=== PATIENT | female | born 1995 | race African-American/Black ===

== ENCOUNTER 2017-11-12 02:15 | Inpatient (IN) | payer BC ==
[~2017-11-12 02:15] MED LIST: ELECTROLYTE-148 SOLN 500 ML IV ONE
[2017-11-12] MEDS ORDERED: ELECTROLYTE-148 SOLN 500 ML IV ONE (03:15)
[2017-11-12] MEDS ORDERED: AMPICILLIN - 2 GM in SODIUM CHLORIDE 100 ML IVPB ONE (03:45)
[2017-11-12 03:49] LABS: BASO % 0.2 % (0-2.0); EOS % 0.2 % (0-4.5); HEMATOCRIT 32.7 % (32.4-45.2); HEMOGLOBIN 10.6 GM/dL (10.7-15.3); LYMPH % 36.1 % (8-40); MCH 23.6 pg (25.7-33.7); MCHC 32.3 g/dl (32.0-36.0); MEAN CELL VOLUME 72.9 fl (80-96); MEAN PLT VOLUME 9.6 fl (7.5-11.1); MONO % 10.5 % (3.8-10.2); PLATELET COUNT 226 K/MM3 (134-434); RBC 4.48 M/mm3 (3.60-5.2); RDW 19.3 % (11.6-15.6)
[2017-11-12] MEDS ORDERED: AMPICILLIN SODIUM 2 GM VIAL ONE (03:59)
[2017-11-12 04:03] LABS: INR 0.96 (0.82-1.09); PROTHROMBIN TIME (PATIENT) 10.8 SEC (9.98-11.88)
[2017-11-12 04:06] LABS: ACTIVATED PTT 25.3 SECONDS (26.9-34.4)
[2017-11-12 04:12] LABS: ANION GAP 10 (8-16); BLOOD UREA NITROGEN 8 mg/dL (7-18); CALCIUM 8.6 mg/dL (8.5-10.1); CHLORIDE 107 mmol/L (98-107); CO2 24 mmol/L (21-32); CREATININE 0.6 mg/dL (0.55-1.02); GLUCOSE,RANDOM 79 mg/dL (74-106); POTASSIUM 3.8 mmol/L (3.5-5.1); SODIUM 141 mmol/L (136-145)
[2017-11-12] MEDS ORDERED: ELECTROLYTE-148 SOLN 1,000 ML IV SCH ×3 (05:15→08:45)
[2017-11-12 05:37] VITALS: BMI 45.3
[2017-11-12] MEDS ORDERED: FENTANYL/BUPIVACAINE/NS/PF - PCEA - 50 ML DISP.SYRIN EP ONE ×2 (07:16→12:18)
--- NOTE | 2017-11-12 07:51 | HP ---
Past Medical History - Admission Chief Complaint: SROM History of Present Illness: 22 y/o with SIUP at 39.2 weeks gestation here for leakage of fluid. Admitted overnight with gross ROM. Pt began having contractions overnight and recently requested an epidural for pain control. Started on GBS Prophylaxis overnight per protocol (GBS unknown). complicated by morbid obesity and +Chlamydia which was treated. No other complications. History Source: Patient, Medical Record - Past Medical History Cardiovascular: No: HTN, MD Pulmonary: No: Asthma, COPD Gastrointestinal: No: GERD ...: 1 ...Para: 0 ...LMP: 03/02/17 ... Weeks Gestation by Dates: 37.3 ...EDC by Dates: 11/30/17 ...EDC by Sono: 08/19/17 Heme/Onc: No: Anemia Infectious Disease: Yes: STD's (+Chlamydia this - treated). No: HIV Psych: No: Anxiety, Bipolar, Depression Endocrine: No: Diabetes Mellitus - Past Surgical History Past Surgical History: Yes: None Hx Myomectomy: No Hx Transabdominal Cerclage: No - Smoking History Smoking history: Former smoker Have you smoked in the past 12 months: No Aproximately how many cigarettes per day: 0 - Alcohol/Substance Use Hx Alcohol Use: No History of Substance Use: reports: Marijuana (quit MJ use) - Social History History of Recent Travel: No Home Medications - Allergies Allergies/Adverse Reactions: Allergies Allergy/AdvReac Type Severity Reaction Status Date / Time bee venom protein (honey bee) Allergy Verified 11/12/17 06:56 No Known Drug Allergies Allergy Verified 11/12/17 06:56 BEE STINGS Allergy Uncoded 11/12/17 06:56 - Home Medications Home Medications: Ambulatory Orders Vit Calc,Iron,Folic [ Vitamins] 1 each PO DAILY 11/12/17 Review of Systems - Review of Systems Constitutional: reports: No Symptoms Eyes: reports: No Symptoms HENT: reports: No Symptoms Neck: reports: No Symptoms Cardiovascular: reports: No Symptoms Respiratory: reports: No Symptoms Genitourinary: reports: Discharge (leaking fluid). denies: Vaginal Bleeding Musculoskeletal: reports: No Symptoms Integumentary: reports: No Symptoms Neurological: reports: No Symptoms Hematology/Lymphatic: reports: No Symptoms Psychiatric: reports: No Symptoms Physical Exam - Maternity Vital Signs: Vital Signs Temperature 98.7 F 11/12/17 06:00 Pulse Rate 83 11/12/17 06:00 Respiratory Rate 20 11/12/17 06:00 Blood Pressure 135/80 11/12/17 06:00 O2 Sat by Pulse Oximetry (%) Constitutional: Yes: Well Nourished, No Distress, Calm Eyes: Yes: Conjunctiva Clear, EOM Intact HENT: Yes: Atraumatic, Normocephalic Neck: Yes: Supple, Trachea Midline Cardiovascular: Yes: Regular Rate and Rhythm Lungs: Clear to auscultation - Abdominal Exam/OB Number of Fetuses: Single Presentation: Vertex Contractions: Yes Regularity: Regular Intensity: Moderate Heart Rate (range): 150 Category: I Accelerations: Uniform Decelerations: None (was having non recurrent variable decelerations prior - now tracing category 1) - Vaginal Exam/OB Speculum Exam: No Dilatation (cm): 5 Effacement (%): 80 Amniotic Membrane Status: Ruptured Amniotic Fluid: Yes: Clear Station: -2 - Physical Exam Psychiatric: Yes: Alert, Oriented - Labs Lab Results: CBC, BMP 11/12/17 03:35 11/12/17 03:35 Hemorrhage Risk Assessment - Risk Factors Medium Risk Factors: Yes: Obesity (BMI >40) High Risk Factors: Yes: None Risk Score: 1 Risk Level: Medium Risk Problem List - Problems (1) Spontaneous rupture of amniotic membranes Code(s): KCE3111 - (2) Rupture of membranes with clear amniotic fluid Code(s): O42.019 - PRETRM RAFAEL ROM, ONSET LABOR W/N 24 HOURS OF RUPT, UNSP TRI (3) Obesity affecting Code(s): O99.210 - OBESITY COMPLICATING , UNSPECIFIED TRIMESTER (4) Active labor at term Code(s): AVG8976 - Assessment/Plan 22 y/o with SIUP at 39.2 weeks, SROM, early labor - FHTS cat 1 - periods of category 2 overnight but have resolved - early labor, s/p epidural, for expectant management at this time - GBS positive per records, continue ampicillin per protocol
[2017-11-12] MEDS: AMPICILLIN - 1 GM in SODIUM CHLORIDE 100 ML IVPB SCH ×4 (08:45→22:51)
[2017-11-12] MEDS ORDERED: NALOXONE HCL 0.4 MG/ML VIAL IVPUSH PRN (08:57)
[2017-11-12] MEDS ORDERED: FENTANYL/BUPIVACAINE/NS/PF - PCEA - 50 ML DISP.SYRIN EP SCH (09:00)
--- NOTE | 2017-11-12 13:33 | PN ---
Ante-Partal Exam - Subjective Subjective: PT feeling some contractions. Continues to have recurrent variable and early declerations, occasional late decelerations noted. Vital Signs: Vital Signs Temperature 98.4 F 11/12/17 10:00 Pulse Rate 71 11/12/17 12:30 Respiratory Rate 18 11/12/17 12:30 Blood Pressure 132/81 11/12/17 12:30 O2 Sat by Pulse Oximetry (%) 98 11/12/17 12:30 Bleeding: Yes Bleeding Description: Moderate (consistent with bloody show) Headache: No Visual changes: No Right upper quadrant pain: No Pain (scale 1-10): 6 - Contractions Contractions: Yes Regularity: Regular Intensity: Mod/Strong - Exam during Labor Heart Rate: 140 Variability: Moderate Category: II Monitor Accelerations: Present Monitor Decelerations: Variable (and early decelerations) Exam: Vaginal Dilatation (cm): 7 Effacement (%): 100 Amniotic Membrane Status: Ruptured Amniotic Fluid: Clear Presentation: Vertex Station: -1 - Assessment/Plan Assessment/Plan: amnio infusion started for recurrent variable/early decelerations pt making slow cervical change if no improvement in tracing or if no spontaneous cervical dilation may need to proceed with delivery will reevaluate in 1-2 hours GBS positive, continue ampicillin
[2017-11-12] MEDS ORDERED: BUPIVACAINE HCL/PF 0.25% (2.5MG/ML) 10 ML VIAL ONE (13:46)
[2017-11-12] MEDS ORDERED: AMPICILLIN SODIUM 1 GM VIAL ONE (15:15)
[2017-11-12] MEDS ORDERED: OXYTOCIN 20 UNITS in 0.9% NS 20 UNIT/1,000 ML INFUS.BAG IV ONE ×2 (16:15→18:40)
[2017-11-12] MEDS ORDERED: LIDOCAINE HCL 1% PRESERVATIVE FREE - 30ML VIAL ONE (16:15)
[2017-11-12] MEDS: OXYTOCIN 20 UNITS in 0.9% NS 20 UNIT/1,000 ML INFUS.BAG IV SCH ×2 (16:40→18:35)
[2017-11-12] MEDS ORDERED: BISACODYL 10 MG SUPP.RECT RC PRN (16:52)
[2017-11-12] MEDS ORDERED: WITCH HAZEL 50% (TUCKS) 40 PAD/JAR PAD TP PRN (16:52)
[2017-11-12] MEDS ORDERED: IBUPROFEN 600 MG TABLET (FP) PO PRN (16:52)
[2017-11-12] MEDS ORDERED: BENZOCAINE 20% 57 GM BOTTLE TP PRN (16:52)
[2017-11-12] MEDS ORDERED: METHYLERGONOVINE MALEATE 0.2 MG/1 ML AMP IM PRN (16:52)
[2017-11-12] MEDS ORDERED: BENZOCAINE 28 GM HEMORRHOIDAL OINTMENT TP PRN (16:52)
--- NOTE | 2017-11-12 16:58 | PN ---
Delivery - Delivery Vaginal Delivery: No Problems Type of Anesthesia: Epidural Episiotomy/Laceration: 1st degree EBL (cc): 300 Delivery, Single - Stages of Labor Date of Delivery: 11/12/17 Time of Delivery: 16:36 Time Placenta Delivered: 16:40 Placenta: Yes: Spontaneous - Condition of Glove Tagger/Air Conditioning Installer Supervisor Present: Yes Name: Jocelyne Mccann Gender: Male Position: Right, OA - 1 Minute Total Score: 8 5 Minutes Total Score: 9 - Feeding Plan Initial Plan: Exclusive throughout hospitalization Remarks - Remarks Remarks: normal uncomplicated baby delivered from JAMARCUS position, nuchal cord noted which was reduced after delivery of head anterior shoulder (left) delivered with ease along with remainder of cord clamped and cut cord gasses collected placenta delivered spontaneously and in tact 1st degree lac noted repaired with 3-0 vicryl and 2-0 chromic suture baby doing well mom stable sponge and needle count correct after delivery
[2017-11-12] MEDS: ACETAMINOPHEN 325 MG TABLET (FP) PO PRN (17:00)
[2017-11-12 17:28] LABS: ARTERIAL BLOOD GAS PCO2 52.5 mmHg (35-45); ARTERIAL BLOOD GAS pH 7.28 (7.35-7.45)
[2017-11-12 17:29] LABS: ARTERIAL BLOOD GAS BASE EXCESS -3.3 meq/l (-2-2)
[2017-11-12 17:32] LABS: ARTERIAL BLD GAS O2 SATURATION 49.2 % (90-98.9); ARTERIAL BLOOD GAS PO2 24.8 mmHg (80-100)
[2017-11-12 17:33] LABS: VENOUS PH 7.28 (7.32-7.42)
[2017-11-12 17:34] LABS: VENOUS PC02 49.4 mmHg (38-52); VENOUS PO2 26.8 mmHg (28-48)
--- NOTE | 2017-11-13 07:34 | PN ---
Post Progress Note Post Day: 1 Type of Delivery: Vital Signs: Vital Signs Temperature 98.0 F 11/13/17 05:00 Pulse Rate 95 H 11/13/17 05:00 Respiratory Rate 20 11/13/17 05:00 Blood Pressure 132/83 11/13/17 05:00 O2 Sat by Pulse Oximetry (%) 100 11/12/17 16:15 Breast Exam: Yes: Soft Uterus: Yes: Fundus Firm, Non-tender Abdomen/GI: Yes: Abdomen soft, Passing flatus, Tolerating PO Lochia: Yes: Rubra Lochia, amount: Moderate Extremities: Yes: Calves non-tender Perineum: Yes: Laceration Activity: Ambulating - Labs Labs: CBC WBC 8.0 K/mm3 (4.0-10.0) 11/12/17 03:35 RBC 4.48 M/mm3 (3.60-5.2) 11/12/17 03:35 Hgb 10.6 GM/dL (10.7-15.3) L 11/12/17 03:35 Hct 32.7 % (32.4-45.2) 11/12/17 03:35 MCV 72.9 fl (80-96) L 11/12/17 03:35 MCH 23.6 pg (25.7-33.7) L 11/12/17 03:35 MCHC 32.3 g/dl (32.0-36.0) 11/12/17 03:35 RDW 19.3 % (11.6-15.6) H 11/12/17 03:35 Plt Count 226 K/MM3 (134-434) 11/12/17 03:35 MPV 9.6 fl (7.5-11.1) 11/12/17 03:35 Neutrophils % 53.0 % (42.8-82.8) 11/12/17 03:35 Lymphocytes % 36.1 % (8-40) 11/12/17 03:35 Monocytes % 10.5 % (3.8-10.2) H 11/12/17 03:35 Eosinophils % 0.2 % (0-4.5) 11/12/17 03:35 Basophils % 0.2 % (0-2.0) 11/12/17 03:35 Other Findings, Remarks: patient offers no complaints, she is lactating well plan to continue current care
[2017-11-13 08:26] LABS: BASO % 0.2 % (0-2.0); EOS % 0.2 % (0-4.5); HEMATOCRIT 26.3 % (32.4-45.2); HEMOGLOBIN 8.2 GM/dL (10.7-15.3); LYMPH % 27.2 % (8-40); MCH 23.1 pg (25.7-33.7); MCHC 31.3 g/dl (32.0-36.0); MEAN CELL VOLUME 73.8 fl (80-96); MEAN PLT VOLUME 9.4 fl (7.5-11.1); MONO % 11.3 % (3.8-10.2); NEUT % 61.1 % (42.8-82.8); PLATELET COUNT 178 K/MM3 (134-434); RBC 3.57 M/mm3 (3.60-5.2); RDW 19.8 % (11.6-15.6); WHITE BLOOD COUNT 11.2 K/mm3 (4.0-10.0)
[2017-11-13] MEDS: PRENATAL VITAMINS W/ FOLIC ACID TABLET (FP) PO SCH (09:19)
--- NOTE | 2017-11-13 20:28 | DS ---
Physical Exam-DROP FORGE HAND Vital Signs: Vital Signs Temperature 98.6 F 11/13/17 14:00 Pulse Rate 99 H 11/13/17 14:00 Respiratory Rate 20 11/13/17 14:00 Blood Pressure 143/73 11/13/17 14:00 O2 Sat by Pulse Oximetry (%) 100 11/12/17 16:15 Constitutional: Yes: Well Nourished, No Distress, Calm Eyes: Yes: Conjunctiva Clear, EOM Intact HENT: Yes: Atraumatic, Normocephalic Neck: Yes: Supple, Trachea Midline Cardiovascular: Yes: Regular Rate and Rhythm Respiratory: Yes: Regular, CTA Bilaterally Gastrointestinal: Yes: Normal Bowel Sounds, Soft Neurological: Yes: Alert, Oriented Psychiatric: Yes: Alert, Oriented Labs: CBC, BMP 11/13/17 07:45 11/12/17 03:35 Delivery - Delivery Vaginal Delivery: No Problems Type of Anesthesia: Epidural Episiotomy/Laceration: 1st degree EBL (cc): 300 Delivery, Single - Stages of Labor Date 1st Stage Initiatied: 11/12/17 Time 1st Stage Initiated: 01:40 Date 2nd Stage Initiated: 11/12/17 Time 2nd Stage Initiated: 16:10 Date of Delivery: 11/12/17 Time of Delivery: 16:36 Time Placenta Delivered: 16:40 Placenta: Yes: Spontaneous - Condition of Relationship Management Lead/Education Dean Present: Yes Name: Jocelyne Mccann Infant Gender: Male Weight: 8 lb 1 oz Position: Right, OA Total Hours ROM (Hrs/Mins): 15HRS - 1 Minute Total Score: 8 5 Minutes Total Score: 9 - [place] Feeding Plan Initial Plan: Exclusive throughout hospitalization Discharge Summary Reason For Visit: LABOR ADMIT Current Active Problems Active labor at term (Acute) Obesity affecting (Acute) Rupture of membranes with clear amniotic fluid (Acute) Spontaneous rupture of amniotic membranes (Acute) Procedures: Principal: Normal Hospital Course: Patient admitted on 11/12 with complaints of leaking fluid, diagnosed with rupture of amniotic membranes and labor. Pt had uncomplicated labor and delivery of viable baby boy. Pt had unremarkable post course and was discharged home on post day 2. Condition: Good - Instructions Diet, Activity, Other Instructions: Physical activity Resume your normal everyday activity as tolerated no heavy lifting or strenuous exercise until seen by your doctor. You may walk unlimited amounts and climb stairs. You may resume driving the car when you feel safe and comfortable behind the wheel. No sexual activity as instructed. Wound care If you have stitches, they will dissolve on their own. Do not attempt to remove them. Diet There are no dietary restrictions. Eat healthy, high-fiber foods. Drink 6 to 8 glasses of liquid each day. This will assist in keeping your bowels are regular. Pain management You may take Tylenol or Ibuprofen (for example, Motrin, Advil etc.) as needed for pain. Call MD for any of the following: Severe pain not relieved by medication Fever of 101 or higher Excessive bleeding or drainage on dressing Inability to urinate Referrals: Anaid Fournier DO [Staff Physician] - 1 Month (4-6 weeks) Disposition: HOME - Home Medications Comprehensive Discharge Medication List: Ambulatory Orders Vit Calc,Iron,Folic [ Vitamins] 1 each PO DAILY 11/12/17
[2017-11-13] MEDS ORDERED: SENNOSIDES/DOCUSATE COMBO (SENNA PLUS) TABLET (UD) PO PRN (22:00)
[2017-11-13] MEDS: ACETAMINOPHEN 325 MG TABLET (FP) PO PRN (22:30)
[2017-11-14] VITALS: TEMP 98.5
[2017-11-14] MEDS: PRENATAL VITAMINS W/ FOLIC ACID TABLET (FP) PO SCH (09:28)
[2017-11-14 09:43] VITALS: BP 125/77; PULSE 83
== END 2017-11-14 12:20 | disposition home or self-care (01) | DRG 775 ==
LOC: JLDR 02:15 → J3W 19:50
PROVIDERS: ADMIT Obstetrics & Gynecology; ATTEND Obstetrics & Gynecology
PROC: 10E0XZZ Delivery of Products of Conception, External Approach (ICD-10-PCS; principal; 2017-11-12)
PROC: 0HQ9XZZ Repair Perineum Skin, External Approach (ICD-10-PCS; 2017-11-12)
PROC: 0W8NXZZ Division of Female Perineum, External Approach (ICD-10-PCS; 2017-11-12)
DX: O70.0 First degree perineal laceration during delivery (principal); Z68.42 Body mass index [BMI] 45.0-49.9, adult; Z37.0 Single live birth; O99.214 Obesity complicating childbirth; E66.9 Obesity, unspecified; Z3A.39 39 weeks gestation of pregnancy; Z22.330 Carrier of Group B streptococcus
CPT/HCPCS: 36415; 36600; 59409; 80048; 82803; 85025; 85610; 85730; 86593; 86850; 86900; 86901

== ENCOUNTER 2022-07-14 13:35 | Inpatient (IN) | payer OTHER ==
[2022-07-14] MEDS ORDERED: ELECTROLYTE-148 SOLN 1,000 ML IV SCH (14:00)
[2022-07-14 14:24] VITALS: BMI 51.6
[2022-07-14] MEDS ORDERED: BUTORPHANOL TARTRATE 2 MG/ML VIAL IVPB ONE (14:30)
[2022-07-14] MEDS ORDERED: PROMETHAZINE HCL 25 MG/1 ML VIAL IVPB ONE (14:30)
[2022-07-14] MEDS ORDERED: BUTORPHANOL TARTRATE 2 MG/ML VIAL ONE (14:53)
[2022-07-14] MEDS ORDERED: PROMETHAZINE HCL 25 MG/1 ML VIAL ONE (14:53)
[2022-07-14 15:26] LABS: BASO % 0.2 % (0-2.0); EOS % 0.1 % (0-4.5); HEMATOCRIT 33.4 % (32.4-45.2); HEMOGLOBIN 10.7 GM/dL (10.7-15.3); LYMPH % 21.9 % (8-40); MCH 26.3 pg (25.7-33.7); MCHC 32.1 g/dl (32.0-36.0); MEAN CELL VOLUME 81.8 fl (80-96); MEAN PLT VOLUME 9.7 fl (7.5-11.1); MONO % 8.3 % (3.8-10.2); NEUT % 69.5 % (42.8-82.8); PLATELET COUNT 189 10^3/uL (134-434); RBC 4.08 M/mm3 (3.60-5.2); RDW 16.5 % (11.6-15.6); WHITE BLOOD COUNT 8.9 K/mm3 (4.0-10.0)
[2022-07-14 15:32] LABS: PROTHROMBIN TIME (PATIENT) 11.5 SEC (9.7-13.0)
[2022-07-14 15:34] LABS: ACTIVATED PTT 27.7 SECONDS (25.2-36.5)
[2022-07-14 15:46] LABS: CALCIUM 8.6 mg/dL (8.5-10.1)
[2022-07-14 15:47] LABS: BLOOD UREA NITROGEN 5.5 mg/dL (7-18)
[2022-07-14 15:50] LABS: CREATININE 0.6 mg/dL (0.55-1.3)
[2022-07-14] MEDS ORDERED: FENTANYL/BUPIVACAINE/NS/PF - PCEA - 50 ML DISP.SYRIN EP ONE (16:01)
[2022-07-14 16:42] LABS: HIV INTERPRETATION NEGATIVE (NEGATIVE)
[2022-07-14 16:57] VITALS: RESP 18
[2022-07-14] MEDS ORDERED: OXYTOCIN 20 UNITS in 0.9% NS 20 UNIT/1,000 ML INFUS.BAG IV ONE (17:07)
[2022-07-14] MEDS ORDERED: BISACODYL 10 MG SUPP.RECT RC PRN (17:58)
[2022-07-14] MEDS ORDERED: BENZOCAINE 20% 57 GM BOTTLE TP PRN (17:58)
[2022-07-14] MEDS ORDERED: METHYLERGONOVINE MALEATE 0.2 MG/1 ML AMP IM PRN (17:58)
[2022-07-14] MEDS ORDERED: oxyCODONE HCL 5 MG TABLET PO PRN (17:58)
[2022-07-14] MEDS ORDERED: WITCH HAZEL 50% (TUCKS) 40 PAD/JAR PAD TP PRN (17:58)
[2022-07-14] MEDS ORDERED: BENZOCAINE 28 GM HEMORRHOIDAL OINTMENT TP PRN (17:58)
[2022-07-14] MEDS ORDERED: ACETAMINOPHEN 325 MG TABLET (FP) PO PRN (17:58)
[2022-07-14] MEDS ORDERED: OXYTOCIN 20 UNITS in 0.9% NS 20 UNIT/1,000 ML INFUS.BAG IV SCH (18:00)
[2022-07-14] MEDS ORDERED: DEXTROSE 5%-LACTATED RINGERS 1,000 ML IV SCH (18:00)
[2022-07-14] MEDS: LABETALOL HCL 200 MG TABLET (FP) PO SCH (22:14)
[2022-07-14] MEDS: IBUPROFEN 600 MG TABLET (FP) PO PRN (22:14)
[2022-07-15] MEDS: LABETALOL HCL 200 MG TABLET (FP) PO SCH ×2 (10:05→21:36)
[2022-07-15] MEDS: PRENATAL VITAMINS W/ FOLIC ACID TABLET (FP) PO SCH (10:05)
[2022-07-15 11:51] LABS: BASO % 0.2 % (0-2.0); EOS % 0.2 % (0-4.5); HEMATOCRIT 31.1 % (32.4-45.2); HEMOGLOBIN 9.9 GM/dL (10.7-15.3); MCH 26.1 pg (25.7-33.7); MCHC 31.6 g/dl (32.0-36.0); MEAN CELL VOLUME 82.6 fl (80-96); MEAN PLT VOLUME 9.7 fl (7.5-11.1); MONO % 9.5 % (3.8-10.2); NEUT % 66.1 % (42.8-82.8); PLATELET COUNT 167 10^3/uL (134-434); RBC 3.77 M/mm3 (3.60-5.2); RDW 16.8 % (11.6-15.6); WHITE BLOOD COUNT 13.3 K/mm3 (4.0-10.0)
[2022-07-15] MEDS: IBUPROFEN 600 MG TABLET (FP) PO PRN (20:37)
[2022-07-15] MEDS ORDERED: SENNOSIDES/DOCUSATE COMBO (SENNA PLUS) TABLET (UD) PO PRN (22:00)
[2022-07-16 08:06] VITALS: BP 135/77; PULSE 84; TEMP 98.1
[2022-07-16] MEDS: LABETALOL HCL 200 MG TABLET (FP) PO SCH (09:34)
[2022-07-16] MEDS: PRENATAL VITAMINS W/ FOLIC ACID TABLET (FP) PO SCH (09:34)
== END 2022-07-16 11:58 | disposition home or self-care (01) | DRG 560 ==
LOC: JLDR 13:35 → J3W 19:40
PROVIDERS: ADMIT Obstetrics & Gynecology; ATTEND Obstetrics & Gynecology
PROC: 10E0XZZ Delivery of Products of Conception, External Approach (ICD-10-PCS; principal; 2022-07-14)
DX: O99.214 Obesity complicating childbirth (principal); Z3A.39 39 weeks gestation of pregnancy; Z37.0 Single live birth
CPT/HCPCS: 36415; 59409; 80048; 85025; 85610; 85730; 86780; 86850; 86900; 86901; 87389; C9803-CS; U0003; U0005